=== PATIENT | male | born 1980 | race Caucasian/White ===

== ENCOUNTER 2017-06-24 20:14 | Inpatient (IN) ==
[2017-06-24] MEDS ORDERED: Pantoprazole 80 MG in Water for inj. (sterile) 10 ML IVP ONE (20:21)
[2017-06-24] MEDS ORDERED: 0.9 % Sodium Chloride 1,000 ML IVC ONE (20:21)
--- NOTE | 2017-06-24 20:22 | Emergency Department Note ---
Disposition Clinical Impression: Upper gastrointestinal hemorrhage, Abnormal liver function tests, History of hepatitis Disposition: Admitted As Inpatient Referrals: NONE,PCP [Primary Care Provider] - Forms: ED Satisfaction Letter General Adult HPI - General Chief complaint: ED GI Bleed Stated complaint: GI bleed Time Seen by Provider: 06/24/17 20:21 Source: patient Limitations: no limitations - History of Present Illness HPI Narrative: 37-year-old male comes in with concerns for vomiting bright red material. He describes dark and black and stool. The patient has no history of ulcer disease. There is no history of chest pain shortness of breath or abdominal pain. No recent trauma. The patient started vomiting what he material about 3: 30 AM. The patient is currently incarcerated. He is here with the [facility] deputy. The patient denies any history of anticoagulant use. There is no history of back pain. No skin rashes. No confusion or syncope. The patient describes a history of Crohn's disease for which he was never treated. The patient has no history of previous gastrointestinal bleeding. Pain Scale: 0 - Related Data Home Medications Medication Instructions Recorded Confirmed No Known Home Drugs 06/24/17 06/24/17 Allergies Allergy/AdvReac Type Severity Reaction Status Date / Time No Known Allergies Allergy Verified 02/19/17 21:56 All systems ED: reviewed and negative except as stated. Past Medical History - Past Medical History Medical history: Reports: no medical history Surgical history: Reports: non-contributory Psychiatric history: Reports: no psych history - Social History Smoking Status: Never smoker Alcohol use: Reports: none Drug use: Reports: methamphetamine Physical Exam - General Limitations: no limitations General appearance: alert, in no apparent distress - Head Head exam: atraumatic, normocephalic, normal inspection - Eye Eye exam: Present: normal appearance, PERRL, EOMI - ENT ENT exam: normal exam, normal oropharynx, mucous membranes moist, TM's normal bilaterally, normal external ear exam - Neck Neck exam: Present: normal inspection, full ROM, trachea midline - Chest Chest inspection: Present: symmetric chest wall rise. Absent: tenderness - Respiratory Respiratory exam: Present: normal lung sounds bilaterally. Absent: respiratory distress, wheezes, accessory muscle use, prolonged expiratory phase - Cardiovascular Cardiovascular exam: Present: normal rhythm, tachycardia - Abdominal Exam Abdominal exam: Present: soft, Non-Tender, normal bowel sounds. Absent: tenderness, distention, guarding, rebound, rigidity, trauma - Rectal Exam Tetryl Blender Operator present during exam: Yes Rectal exam: Present: normal inspection, normal rectal tone, black stool. Absent: hemorrhoids - Extremities Exam Extremities exam: Present: normal inspection, full ROM, normal capillary refill. Absent: tenderness, pedal edema, joint swelling, calf tenderness - Expanded Lower Extremity Exam Lower leg exam: Absent: Homans' sign Neurovascular/Tendon exam: Present: normal capillary refill. Absent: motor deficit, sensory deficit, tendon deficit, extremity cold to touch, pallor - Back Exam Back exam: Present: normal inspection, full ROM. Absent: tenderness, CVA tenderness (L), paraspinal tenderness, vertebral tenderness - Neurological Exam Neurological exam: Present: alert, oriented X3, CN II-XII intact. Absent: motor sensory deficit - Psychiatric Psychiatric exam: Present: normal affect - Skin Skin exam: Present: warm, dry, intact, normal color. Absent: rash, cyanosis, diaphoresis, erythema, pallor, mottled Course Vital Signs Temperature 97.5 F L 06/24/17 20:16 Pulse Rate 127 06/24/17 20:16 Respiratory Rate 16 06/24/17 20:16 Blood Pressure 114/70 06/24/17 20:16 O2 Sat by Pulse Oximetry 97 06/24/17 20:16 Temperature 97.5 F L 06/24/17 20:16 Pulse Rate 92 06/24/17 21:52 Respiratory Rate 16 06/24/17 21:52 Blood Pressure 129/80 06/24/17 21:52 O2 Sat by Pulse Oximetry 97 06/24/17 21:52 Oxygen Delivery Oxygen Delivery Room Air Medical Decision Making - [facility] Narrative Medical decision making narrative: The patient's rectal exam reveals black material on the glove which is heme positive. He is anemic with a hemoglobin of 10.7. Initially tachycardic, IV fluids were given, type and screen was ordered. Elevated BUN suggestive of upper GI bleed. Protonix bolus Protonix drip were given. The patient appears to have upper gastrointestinal bleeding, his liver function tests are abnormal suggestive of hepatitis. Per report the patient has a history of hepatitis. Based on the patient's acute upper gastrointestinal bleeding, anemia, and tachycardia I thought it would be appropriate to admit the patient to the hospital. The patient's heart rate is come down into the 108 range. A third liter of fluid was given. A second hemoglobin was ordered. The patient is incarcerated [facility] is here with him. He is being monitored by security. The patient is currently stable pending admission. I have reviewed the case with the hospitalist on-call who has accepted the patient to their care. - Lab Data Lab results reviewed: Yes I reviewed the patient's lab results. Result diagrams: 06/24/17 20:47 06/24/17 20:47 Lab Results 06/24/17 06/24/17 06/24/17 Range/Units 20:47 20:47 20:47 WBC 11.6 H (4.3-11.1) K/mcL RBC 4.05 L (4.19-5.50) M/mcL Hgb 10.7 L (12.9-16.9) g/dL Hct 34.3 L (37.5-50.1) % MCV 84.7 (83.0-100.0) fL MCH 26.4 L (28.0-33.3) pg MCHC 31.2 L (31.6-35.5) g/dL RDW 13.7 (11.5-14.5) % Plt Count 247 (140-400) K/mcL MPV 11.8 (9.4-12.4) fL Immature Gran % 0.5 (0-4) % Seg Neutrophils % 75.5 % Lymphocytes % 17.7 % Monocytes % 5.1 % Eosinophils % 0.9 % Basophils % 0.3 % Neutrophils # 8.8 (1.6-8.9) K/mcL Lymphocytes # 2.1 (0.6-4.6) K/mcL Monocytes # 0.6 (0.0-1.3) K/mcL Eosinophils # 0.1 (0.0-0.6) K/mcL Basophils # 0.0 (0.0-0.2) K/mcL PT 12.9 H (9.4-12.1) Seconds INR 1.2 APTT 28.9 (26.0-36.0) Seconds Sodium 138 (136-145) mEq/L Potassium 4.1 (3.5-4.5) mEq/L Chloride 104 (98-109) mEq/L Carbon Dioxide 19 (19-29) mEq/L BUN 32 H (8-26) mg/dL Creatinine 0.85 (0.72-1.25) mg/dL Est GFR ( Amer) > 60 (> 60) Est GFR (Non-Af Amer) > 60 (> 60) BUN/Creatinine Ratio 38 H (6-26) Glucose 136 H (70-99) mg/dL Calculated Osmolality 295 (280-300) Calcium 8.5 L (8.6-10.8) mg/dL Total Bilirubin 0.9 (0.2-1.2) mg/dL Direct Bilirubin 0.4 (0.0-0.5) mg/dL Indirect Bilirubin 0.5 (0.0-1.2) mg/dL AST 339 H (5-34) Units/L ALT 660 H (0-55) Units/L Alkaline Phosphatase 96 (38-126) Units/L Serum Total Protein 7.0 (6.0-8.3) g/dL Albumin 3.3 L (3.5-5.0) g/dL Globulin 3.7 H (2.4-3.5) g/dL Albumin/Globulin Ratio 0.9 L (1.1-2.2) Stool Occult Blood (Negative) Blood Type Antibody Screen 06/24/17 06/24/17 Range/Units 20:47 21:26 WBC (4.3-11.1) K/mcL RBC (4.19-5.50) M/mcL Hgb (12.9-16.9) g/dL Hct (37.5-50.1) % MCV (83.0-100.0) fL MCH (28.0-33.3) pg MCHC (31.6-35.5) g/dL RDW (11.5-14.5) % Plt Count (140-400) K/mcL MPV (9.4-12.4) fL Immature Gran % (0-4) % Seg Neutrophils % % Lymphocytes % % Monocytes % % Eosinophils % % Basophils % % Neutrophils # (1.6-8.9) K/mcL Lymphocytes # (0.6-4.6) K/mcL Monocytes # (0.0-1.3) K/mcL Eosinophils # (0.0-0.6) K/mcL Basophils # (0.0-0.2) K/mcL PT (9.4-12.1) Seconds INR APTT (26.0-36.0) Seconds Sodium (136-145) mEq/L Potassium (3.5-4.5) mEq/L Chloride (98-109) mEq/L Carbon Dioxide (19-29) mEq/L BUN (8-26) mg/dL Creatinine (0.72-1.25) mg/dL Est GFR ( Amer) (> 60) Est GFR (Non-Af Amer) (> 60) BUN/Creatinine Ratio (6-26) Glucose (70-99) mg/dL Calculated Osmolality (280-300) Calcium (8.6-10.8) mg/dL Total Bilirubin (0.2-1.2) mg/dL Direct Bilirubin (0.0-0.5) mg/dL Indirect Bilirubin (0.0-1.2) mg/dL AST (5-34) Units/L ALT (0-55) Units/L Alkaline Phosphatase (38-126) Units/L Serum Total Protein (6.0-8.3) g/dL Albumin (3.5-5.0) g/dL Globulin (2.4-3.5) g/dL Albumin/Globulin Ratio (1.1-2.2) Stool Occult Blood Positive A (Negative) Blood Type O NEGATIVE Antibody Screen NEGATIVE
[2017-06-24] MEDS ORDERED: Pantoprazole 40 MG in 0.9 % Sodium Chloride Mini Bag 100 ML IVC SCH (20:30)
[2017-06-24] MEDS ORDERED: Pantoprazole 40 MG in 0.9 % Sodium Chloride Mini Bag 100 ML IVC ONE (20:30)
[2017-06-24 21:03] LABS: Basophils % 0.3 %; Eosinophils # 0.1 K/mcL (0.0-0.6); Eosinophils % 0.9 %; Hematocrit 34.3 % (37.5-50.1); Hemoglobin 10.7 g/dL (12.9-16.9); Immature Granulocytes % 0.5 % (0-4); Lymphocytes # 2.1 K/mcL (0.6-4.6); Lymphocytes % 17.7 %; Mean Corpuscular HGB Conc 31.2 g/dL (31.6-35.5); Mean Corpuscular Hemoglobin 26.4 pg (28.0-33.3); Mean Corpuscular Volume 84.7 fL (83.0-100.0); Mean Platelet Volume 11.8 fL (9.4-12.4); Monocytes # 0.6 K/mcL (0.0-1.3); Monocytes % 5.1 %; Neutrophils # 8.8 K/mcL (1.6-8.9); Platelet Count 247 K/mcL (140-400); Red Blood Count 4.05 M/mcL (4.19-5.50); Red Cell Distribution Width 13.7 % (11.5-14.5); Segmented Neutrophils % 75.5 %
[2017-06-24 21:08] LABS: INR 1.2; Prothrombin Time 12.9 Seconds (9.4-12.1)
[2017-06-24 21:10] LABS: Activated Partial Thrombo Time 28.9 Seconds (26.0-36.0)
[2017-06-24 21:21] LABS: Alanine Aminotransferase 660 Units/L (0-55); Albumin 3.3 g/dL (3.5-5.0); Albumin/Globulin Ratio 0.9 (1.1-2.2); Alkaline Phosphatase 96 Units/L (38-126); Aspartate Amino Transferase 339 Units/L (5-34); BUN/Creatinine Ratio 38 (6-26); Bilirubin,Direct 0.4 mg/dL (0.0-0.5); Bilirubin,Indirect 0.5 mg/dL (0.0-1.2); Bilirubin,Total 0.9 mg/dL (0.2-1.2); Blood Urea Nitrogen 32 mg/dL (8-26); Calcium 8.5 mg/dL (8.6-10.8); Carbon Dioxide 19 mEq/L (19-29); Chloride 104 mEq/L (98-109); Globulin 3.7 g/dL (2.4-3.5); Glucose 136 mg/dL (70-99); Osmolality,Calculated 295 (280-300); Potassium 4.1 mEq/L (3.5-4.5); Sodium 138 mEq/L (136-145); eGFR For African Americans > 60 (> 60); eGFR For Non-African Americans > 60 (> 60)
[2017-06-24] MEDS ORDERED: 0.9 % Sodium Chloride 1,000 ML ONE ×2 (21:37→22:41)
[2017-06-24 22:47] LABS: Amphetamine Screen,Urine Negative ng/mL (Cutoff=1000); Barbiturate Screen,Urine Negative ng/mL (Cutoff=200); Benzodiazepines Screen,Urine Negative ng/mL (Cutoff=200); Cannabinoid Screen,Urine Negative ng/mL (Cutoff = 50); Cocaine Screen,Urine Negative ng/mL (Cutoff= 300); Opiate Screen,Urine Negative ng/mL (Cutoff=300); Phencyclidine Screen,Urine Negative ng/mL (Cutoff=25)
[2017-06-24 22:56] LABS: Hematocrit 33.6 % (37.5-50.1); Hemoglobin 10.6 g/dL (12.9-16.9); Mean Corpuscular HGB Conc 31.5 g/dL (31.6-35.5); Mean Corpuscular Hemoglobin 26.6 pg (28.0-33.3); Mean Corpuscular Volume 84.4 fL (83.0-100.0); Mean Platelet Volume 11.4 fL (9.4-12.4); Platelet Count 223 K/mcL (140-400); Red Blood Count 3.98 M/mcL (4.19-5.50); Red Cell Distribution Width 13.7 % (11.5-14.5)
[2017-06-24] MEDS ORDERED: *HR* LORazepam 2 MG/ML VIAL IVP ONE (23:40)
[2017-06-25] MEDS: *HR* Morphine 2 MG/ML SYRINGE IVP PRN ×7 (01:25→21:57)
[2017-06-25] MEDS ORDERED: Naloxone 0.4 MG/ML INJ IVP PRN (05:15)
[2017-06-25] MEDS: 0.9 % Sodium Chloride 1,000 ML IVC SCH ×2 (06:08→15:37)
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
[2017-06-25] MEDS ORDERED: Pantoprazole 80 MG in 0.9 % Sodium Chloride 250 ML IVC SCH (06:45)
[2017-06-25 07:09] LABS: Hematocrit 26.5 % (37.5-50.1)
[2017-06-25 07:10] LABS: Basophils % 0.3 %; Eosinophils # 0.1 K/mcL (0.0-0.6); Eosinophils % 1.1 %; Hematocrit 26.6 % (37.5-50.1); Hematocrit 26.8 % (37.5-50.1); Hemoglobin 8.5 g/dL (12.9-16.9); Hemoglobin 8.6 g/dL (12.9-16.9); Immature Granulocytes % 0.4 % (0-4); Lymphocytes # 2.3 K/mcL (0.6-4.6); Lymphocytes % 29.5 %; Mean Corpuscular HGB Conc 31.7 g/dL (31.6-35.5); Mean Corpuscular HGB Conc 32.3 g/dL (31.6-35.5); Mean Corpuscular Hemoglobin 26.3 pg (28.0-33.3); Mean Corpuscular Hemoglobin 26.7 pg (28.0-33.3); Mean Corpuscular Volume 82.6 fL (83.0-100.0); Mean Platelet Volume 12.1 fL (9.4-12.4); Mean Platelet Volume 12.2 fL (9.4-12.4); Monocytes # 0.6 K/mcL (0.0-1.3); Monocytes % 7.4 %; Neutrophils # 4.8 K/mcL (1.6-8.9); Nucleated Red Blood Cells 0.3 /100 WBC (0); Platelet Count 194 K/mcL (140-400); Platelet Count 195 K/mcL (140-400); Red Blood Count 3.22 M/mcL (4.19-5.50); Red Blood Count 3.23 M/mcL (4.19-5.50); Red Cell Distribution Width 13.9 % (11.5-14.5); Segmented Neutrophils % 61.3 %
[2017-06-25 07:13] LABS: Hemoglobin 8.6 g/dL (12.9-16.9)
[2017-06-25 07:38] LABS: Alanine Aminotransferase 482 Units/L (0-55); Albumin 2.7 g/dL (3.5-5.0); Albumin/Globulin Ratio 0.9 (1.1-2.2); Alkaline Phosphatase 72 Units/L (38-126); Amylase 40 Units/L (25-125); Aspartate Amino Transferase 241 Units/L (5-34); BUN/Creatinine Ratio 33 (6-26); Bilirubin,Direct 0.2 mg/dL (0.0-0.5); Bilirubin,Indirect 0.5 mg/dL (0.0-1.2); Bilirubin,Total 0.7 mg/dL (0.2-1.2); Blood Urea Nitrogen 27 mg/dL (8-26); Calcium 7.8 mg/dL (8.6-10.8); Carbon Dioxide 24 mEq/L (19-29); Chloride 107 mEq/L (98-109); Chol/HDL Ratio 5.2 (0-4.9); Cholesterol 109 mg/dL (< 200); Glucose 93 mg/dL (70-99); HDL Cholesterol 21 mg/dL (40-59); LDL Cholesterol,Calculated 65 mg/dL (0-99); Magnesium 1.4 mg/dL (1.6-2.6); Osmolality,Calculated 295 (280-300); Sodium 140 mEq/L (136-145); Total Protein 5.7 g/dL (6.0-8.3); Triglycerides 115 mg/dL (< 150); eGFR For African Americans > 60 (> 60); eGFR For Non-African Americans > 60 (> 60)
[2017-06-25 07:39] LABS: Lipase < 10 Units/L (8-78)
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
[2017-06-25 10:03] LABS: % Iron Saturation 51 % (20-55); Iron 182 mcg/dL (65-175); Transferrin 255 mg/dL (174-364)
[2017-06-25 10:23] LABS: Ferritin 72 ng/ml (22-275)
[2017-06-25 11:51] LABS: Hematocrit 25.6 % (37.5-50.1); Hemoglobin 8.2 g/dL (12.9-16.9)
--- NOTE | 2017-06-25 13:15 | Anesthesia Evaluation PreOp ---
Date of Encounter: 06/25/17 Time of Encounter: 13:45 - Past History Planned Operation: EGD Cardiac History: Denies any Significant Hx Pulmonary History: Denies Any Significant HX ROAD DRIVER History: Denies Any Significant HX Other Medical History: Hepatic (History of hepatitis and IV drug abuse.), Other ([facility] with [facility] and upper GI bleed. Has not required transfusion yet.) Anesthesia History: No Prior Anesthetic Complications, Past Anesthesia Alcohol Use: none Drug use: marijuana, methamphetamine Medications and Allergies No Known Home Drugs 06/24/17 [History] 3 Allergy/AdvReac Type Severity Reaction Status Date / Time No Known Allergies Allergy Verified 02/19/17 21:56 - Meds/Allergy Pre-op Review Medications Reviewed: Yes Allergies Reviewed: Yes Beta Blockers on Current Med List: No Anesthesia Results - Labs 06/25/17 11:11 06/25/17 05:37 Anesthesia Exam Selected Entries 06/25/17 11:29 Temperature 98.2 F Pulse Rate 94 Respiratory Rate 15 Blood Pressure 119/78 O2 Sat by Pulse Oximetry 97 NPO (# of Hours): 72 kg - HEENT Pupil (Motor): Pupils equal Mallampati: I Teeth: Normal (broken tooth) Oral Opening: Greater than 3 - Cardiac Rhythm: Regular Murmur: None - Pulmonary Breath Sounds: bilateral Clear Respiratory Effort: Symmetrical Anesthesia Assess/Plan ASA Score: 2 Modified [place] Scale for Level of Consciousness: Cooperative, oriented, and tranquil Anesthetic Plan: MAC Monitoring Plan: Standard Monitors Recovery Plan: Other (Discussed MAC anesthesia, agreed to proceed.)
[2017-06-25] MEDS: 0.9 % Sodium Chloride 500 ML IVC SCH (13:43)
[2017-06-25] MEDS ORDERED: *HR* Propofol 200 MG/20 ML VIAL IVP ONE (13:54)
--- NOTE | 2017-06-25 14:54 | Internal Med Progress Note ---
<Jb Olivier - Last Filed: 06/25/17 15:01> Date of Encounter: 06/25/17 Time of Encounter: 09:45 - Assessment and plan (1) Upper gastrointestinal hemorrhage Current Visit: Yes Status: Acute Assessment and plan: Patient reported having several episodes of kathi hematemesis and melena before admission. He described having dark and black stool. No history of peptic ulcer disease. No history of anticoagulant use. He describes a history of Crohn's disease for which she was never treated; no previous GI bleeds. Rectal exam revealed black material; heme positive. Patient's hemoglobin dropped by approximately 2 points. Hb this morning was 8.6. Was initially tachycardic; IV fluids were given. Patient's blood type is O-. Plan: -Plan for EGD today. -GI is on board. -Pantoprazole drip 80 mg IV -Repeat exam labs. (2) Cholecystitis Current Visit: Yes Status: Acute Assessment and plan: Gallbladder ultrasound on 06/25/17 revealed the following: Suspected biliary sludge without findings of cholelithiasis. There is mild gallbladder wall thickening without additional secondary findings of cholecystitis. Normal sonographic appearance of the liver. Plan: -GI on board, HIDA scan may be needed (3) Transaminitis Current Visit: Yes Status: Acute Assessment and plan: Patient has a known history of hepatitis C. AST: 241 ALT: 482. Toxicology report was negative. Repeated am labs, along with viral hepatitis panel, ferritin, iron profile, platelet count, PT INR (4) DVT prophylaxis Current Visit: Yes Status: Acute Assessment and plan: EPCD - Subjective Interval history: Patient was seen and examined at bedside this morning. Patient reports having some abdominal pain. He also reports having some anxiety, which was initially relieved by Ativan. He is not requesting more. Patient denies having any episodes of nausea or vomiting this morning. Denies fever, chills, diarrhea, constipation. Denies having any other complaints at this time. banking officer at bedside. Patient is going for EGD today. - Constitutional Vitals: Temp Pulse Resp BP Pulse Ox 99 F 92 18 118/77 97 06/25/17 13:40 06/25/17 13:40 06/25/17 13:40 06/25/17 13:40 06/25/17 13:40 General appearance: Present: cooperative, A&O X 3, pleasant, no acute distress, answers questions appropriately - Head Head exam: Present: atraumatic, normocephalic - Neck Neck exam general surgery: Present: supple, trachea midline. Absent: lymphadenopathy - Respiratory Respiratory exam: Present: CTAB. Absent: accessory muscle use, rales, rhonchi, wheezes - Cardiovascular Cardiovascular exam: Present: RRR, +S1, +S2. Absent: diastolic murmur, gallop, rubs, systolic murmur - GI/Abdominal GI/Abdominal exam: Present: normal bowel sounds, soft, tenderness, no peritoneal signs. Absent: distended Additional comments: Diffuse abdominal pain; not reproducible by palpation. - Extremities Exam Extremities exam: Present: warm, radial pulses palpable and symmetrical. Absent : calf tenderness, cyanotic, pedal edema - Skin Skin exam: Present: dry, intact Internal Medicine: Result - Labs CBC & Chem 7: 06/25/17 11:11 06/25/17 05:37 Labs: Short CBC 06/25/17 06/25/17 06/25/17 Range/Units 05:37 05:37 05:37 WBC 8.2 7.9 (4.3-11.1) K/mcL Hgb 8.6 L D 8.6 L 8.5 L (12.9-16.9) g/dL Hct 26.6 L 26.5 L 26.8 L (37.5-50.1) % Plt Count 195 194 (140-400) K/mcL Neutrophils # 4.8 (1.6-8.9) K/mcL 06/25/17 Range/Units 11:11 WBC (4.3-11.1) K/mcL Hgb 8.2 L (12.9-16.9) g/dL Hct 25.6 L (37.5-50.1) % Plt Count (140-400) K/mcL Neutrophils # (1.6-8.9) K/mcL BMP 06/25/17 05:37 Sodium 140 Potassium 4.0 Chloride 107 Carbon Dioxide 24 BUN 27 H Creatinine 0.81 Glucose 93 Calcium 7.8 L Liver Function 06/25/17 Range/Units 05:37 Total Bilirubin 0.7 (0.2-1.2) mg/dL Direct Bilirubin 0.2 (0.0-0.5) mg/dL AST 241 H (5-34) Units/L ALT 482 H (0-55) Units/L Alkaline Phosphatase 72 (38-126) Units/L Albumin 2.7 L (3.5-5.0) g/dL - ABG Interpretation ABG results: PT/INR, D-dimer PT 12.9 Seconds (9.4-12.1) H 06/24/17 20:47 - Impressions Impressions Gallbladder Ultrasound 06/25/17 10:30 IMPRESSION: 1. Suspected biliary sludge without findings of cholelithiasis. There is mild gallbladder wall thickening without additional secondary findings of cholecystitis. Consider further evaluation with a nuclear medicine hepatobiliary scan if there are clinical findings of cholecystitis. 2. Normal sonographic appearance of the liver. D/ / Reinier Robles MD / Reinier Robles MD Interpreting Provider: Reinier Robles MD Consult Discharge Plan - Plan Referrals: NONE,PCP [Primary Care Provider] - <Nate Patel - Last Filed: 06/25/17 19:37> Date of Encounter: 06/25/17 - Constitutional Vitals: Temp Pulse Resp BP Pulse Ox 97.9 F 89 18 112/68 98 06/25/17 19:10 06/25/17 19:10 06/25/17 19:10 06/25/17 19:10 06/25/17 19:10 Internal Medicine: Result - Labs CBC & Chem 7: 06/25/17 18:01 06/25/17 05:37 Labs: Short CBC 06/25/17 06/25/17 06/25/17 Range/Units 05:37 05:37 05:37 WBC 8.2 7.9 (4.3-11.1) K/mcL Hgb 8.6 L D 8.6 L 8.5 L (12.9-16.9) g/dL Hct 26.6 L 26.5 L 26.8 L (37.5-50.1) % Plt Count 195 194 (140-400) K/mcL Neutrophils # 4.8 (1.6-8.9) K/mcL 06/25/17 06/25/17 Range/Units 11:11 18:01 WBC (4.3-11.1) K/mcL Hgb 8.2 L 7.6 L (12.9-16.9) g/dL Hct 25.6 L 23.4 L (37.5-50.1) % Plt Count (140-400) K/mcL Neutrophils # (1.6-8.9) K/mcL BMP 06/25/17 05:37 Sodium 140 Potassium 4.0 Chloride 107 Carbon Dioxide 24 BUN 27 H Creatinine 0.81 Glucose 93 Calcium 7.8 L Liver Function 06/25/17 Range/Units 05:37 Total Bilirubin 0.7 (0.2-1.2) mg/dL Direct Bilirubin 0.2 (0.0-0.5) mg/dL AST 241 H (5-34) Units/L ALT 482 H (0-55) Units/L Alkaline Phosphatase 72 (38-126) Units/L Albumin 2.7 L (3.5-5.0) g/dL - ABG Interpretation ABG results: PT/INR, D-dimer PT 12.9 Seconds (9.4-12.1) H 06/24/17 20:47 - Impressions Impressions Gallbladder Ultrasound 06/25/17 10:30 IMPRESSION: 1. Suspected biliary sludge without findings of cholelithiasis. There is mild gallbladder wall thickening without additional secondary findings of cholecystitis. Consider further evaluation with a nuclear medicine hepatobiliary scan if there are clinical findings of cholecystitis. 2. Normal sonographic appearance of the liver. D/ / Reinier Robles MD / Reinier Robles MD Interpreting Provider: Reinier Robles MD - Attending Attestation I conducted a face to face diagnostic evaluation of this patient and my medical decision-making was reviewed with the Resident Physician, Dr. Jb Olivier. I agree with the documented findings, disposition and treatment plan as described except to the extent set forth below: On exam he is in no acute distress, abdomen is soft, nontender. Continue with IV Protonix. Appreciate GI recommendations. All medical problems or new to me today.
[2017-06-25] MEDS ORDERED: *HR* EPINEPHrine 1 MG/10 ML SYRINGE INTRATRACH PRN (14:55)
[2017-06-25] MEDS ORDERED: *HR* LORazepam 2 MG/ML VIAL IVP PRN (15:56)
[2017-06-25 18:11] LABS: Hematocrit 23.4 % (37.5-50.1); Hemoglobin 7.6 g/dL (12.9-16.9)
[2017-06-25] MEDS: Ondansetron 4 MG/2 ML VIAL IVP SCH ×2 (18:22→23:34)
[2017-06-25] MEDS: Pantoprazole 80 MG in 0.9 % Sodium Chloride 250 ML IVC SCH (23:28)
[2017-06-26 01:34] LABS: Hematocrit 22.6 % (37.5-50.1); Hemoglobin 7.2 g/dL (12.9-16.9)
[2017-06-26] MEDS: *HR* Morphine 2 MG/ML SYRINGE IVP PRN ×5 (02:07→21:39)
[2017-06-26] MEDS: Ondansetron 4 MG/2 ML VIAL IVP SCH ×4 (06:02→23:56)
[2017-06-26 06:23] LABS: Hematocrit 22.9 % (37.5-50.1); Hemoglobin 7.3 g/dL (12.9-16.9)
[2017-06-26] MEDS: 0.9 % Sodium Chloride 500 ML IVC SCH (07:35)
[2017-06-26] MEDS: Pantoprazole 80 MG in 0.9 % Sodium Chloride 250 ML IVC SCH (08:36)
[2017-06-26 08:49] LABS: Ceruloplasmin 15 mg/dL (17-54)
[2017-06-26 10:20] LABS: Hematocrit 22.7 % (37.5-50.1); Hemoglobin 7.1 g/dL (12.9-16.9); Mean Corpuscular HGB Conc 31.3 g/dL (31.6-35.5); Mean Corpuscular Volume 83.2 fL (83.0-100.0); Platelet Count 129 K/mcL (140-400); Red Blood Count 2.73 M/mcL (4.19-5.50); Red Cell Distribution Width 13.8 % (11.5-14.5)
[2017-06-26 10:32] LABS: BUN/Creatinine Ratio 16 (6-26); Blood Urea Nitrogen 14 mg/dL (8-26); Calcium 8.4 mg/dL (8.6-10.8); Carbon Dioxide 29 mEq/L (19-29); Chloride 106 mEq/L (98-109); Glucose 92 mg/dL (70-99); Osmolality,Calculated 288 (280-300); Potassium 3.5 mEq/L (3.5-4.5); Sodium 139 mEq/L (136-145); eGFR For African Americans > 60 (> 60); eGFR For Non-African Americans > 60 (> 60)
[2017-06-26 11:29] LABS: Hepatitis B Core IgM Reactive (Nonreactive); Hepatitis B Surface Antigen Reactive (Nonreactive); Hepatitis C Virus Antibody Reactive (Nonreactive)
[2017-06-26 12:25] LABS: Hepatitis A Antibody IgM Nonreactive (Nonreactive)
[2017-06-26 12:39] LABS: Hematocrit 23.6 % (37.5-50.1); Hemoglobin 7.6 g/dL (12.9-16.9)
--- NOTE | 2017-06-26 16:16 | Internal Med Progress Note ---
<Jb Olivier - Last Filed: 06/26/17 16:28> Date of Encounter: 06/26/17 Time of Encounter: 10:45 - Assessment and plan (1) Upper gastrointestinal hemorrhage Current Visit: Yes Status: Acute Assessment and plan: Patient reported having several episodes of kathi hematemesis and melena before admission. He described having dark and black stool. No history of peptic ulcer disease. No history of anticoagulant use. He describes a history of Crohn's disease for which she was never treated; no previous GI bleeds. Rectal exam revealed black material; heme positive. Patient's hemoglobin dropped by approximately 2 points. Hb this morning was 8.6. Was initially tachycardic; IV fluids were given. Patient's blood type is O-. Isamar Arambula tear found on EGD. Plan: -Pantoprazole drip 80 mg IV -Trend Hb Q6 -Repeat am labs. (3) Cholecystitis Current Visit: Yes Status: Acute Assessment and plan: Gallbladder ultrasound on 06/25/17 revealed the following: Suspected biliary sludge without findings of cholelithiasis. There is mild gallbladder wall thickening without additional secondary findings of cholecystitis. Normal sonographic appearance of the liver. Plan: -GI on board (4) Transaminitis Current Visit: Yes Status: Acute Assessment and plan: Patient has a known history of hepatitis C. AST: 241 ALT: 482. (5) DVT prophylaxis Current Visit: Yes Status: Acute Assessment and plan: EPCD (6) Anxiety Current Visit: Yes Status: Acute Assessment and plan: Ativan 0.5 mg Q6 PRN - Subjective Interval history: Patient was seen and examined at bedside this morning. Patient reports having some abdominal pain. He also reports some anxiety. He states that the Ativan has helped somewhat, but he still feels anxious. He also complains of some abdominal pain present in the area above his umbilicus. Denies nausea or vomiting. No other complaints at this time. - Constitutional Vitals: Temp Pulse Resp BP Pulse Ox 98.9 F 93 16 124/64 93 06/26/17 11:16 06/26/17 11:16 06/26/17 11:16 06/26/17 11:16 06/26/17 11:16 General appearance: Present: cooperative, A&O X 3, pleasant, no acute distress, answers questions appropriately - Head Head exam: Present: atraumatic, normocephalic - Eye Eye exam: Present: PERRL, conjuntiva pink, sclera anicteric Pupils: Present: PERRL - Neck Neck exam general surgery: Present: supple, trachea midline. Absent: lymphadenopathy - Respiratory Respiratory exam: Present: CTAB. Absent: accessory muscle use, rales, rhonchi, wheezes - Cardiovascular Cardiovascular exam: Present: RRR, +S1, +S2. Absent: diastolic murmur, gallop, rubs, systolic murmur - GI/Abdominal GI/Abdominal exam: Present: normal bowel sounds, tenderness. Absent: distended - Extremities Exam Extremities exam: Present: warm, radial pulses palpable and symmetrical. Absent : calf tenderness, cyanotic, pedal edema - Skin Skin exam: Present: dry, intact Internal Medicine: Result - Labs CBC & Chem 7: 06/26/17 12:08 06/26/17 09:56 Labs: Short CBC 06/25/17 06/26/17 06/26/17 Range/Units 18:01 00:31 06:15 WBC (4.3-11.1) K/mcL Hgb 7.6 L 7.2 L 7.3 L (12.9-16.9) g/dL Hct 23.4 L 22.6 L 22.9 L (37.5-50.1) % Plt Count (140-400) K/mcL 06/26/17 06/26/17 Range/Units 09:56 12:08 WBC 3.1 L D (4.3-11.1) K/mcL Hgb 7.1 L 7.6 L (12.9-16.9) g/dL Hct 22.7 L 23.6 L (37.5-50.1) % Plt Count 129 L (140-400) K/mcL BMP 06/26/17 09:56 Sodium 139 Potassium 3.5 Chloride 106 Carbon Dioxide 29 BUN 14 D Creatinine 0.88 Glucose 92 Calcium 8.4 L - ABG Interpretation ABG results: PT/INR, D-dimer PT 12.9 Seconds (9.4-12.1) H 06/24/17 20:47 Consult Discharge Plan - Plan Referrals: NONE,PCP [Primary Care Provider] - <Nate Patel - Last Filed: 06/27/17 17:51> Date of Encounter: 06/26/17 - Constitutional Vitals: Temp Pulse Resp BP Pulse Ox 98.4 F 73 15 103/64 98 06/27/17 16:17 06/27/17 16:17 06/27/17 16:17 06/27/17 16:17 06/27/17 16:17 Internal Medicine: Result - Labs CBC & Chem 7: 06/27/17 16:08 06/27/17 05:04 Labs: Short CBC 06/26/17 06/27/17 06/27/17 Range/Units 18:21 05:04 16:08 WBC 3.0 L 3.0 L (4.3-11.1) K/mcL Hgb 6.8 L 7.9 L 7.7 L (12.9-16.9) g/dL Hct 21.0 L 24.2 L 22.9 L (37.5-50.1) % Plt Count 125 L 103 L (140-400) K/mcL BMP 06/27/17 05:04 Sodium 140 Potassium 3.6 Chloride 107 Carbon Dioxide 29 BUN 12 Creatinine 1.01 Glucose 102 H Calcium 8.4 L - ABG Interpretation ABG results: PT/INR, D-dimer PT 12.9 Seconds (9.4-12.1) H 06/24/17 20:47 - Attending Attestation I conducted a face to face diagnostic evaluation of this patient and my medical decision-making was reviewed with the Resident Physician, Dr. Jb Olivier. I agree with the documented findings, disposition and treatment plan as described except to the extent set forth below: Patient had EGD which showed a Isamar-Arambula tear. Continue with protonic drip. Nothing by mouth. Follow-up with GI.
[2017-06-26] MEDS: Pantoprazole 40 MG VIAL IVP SCH (17:16)
[2017-06-26 18:52] LABS: Hemoglobin 6.8 g/dL (12.9-16.9)
[2017-06-26] MEDS ORDERED: 0.9 % Sodium Chloride 250 ML ONE (21:26)
[2017-06-27] MEDS: *HR* Morphine 2 MG/ML SYRINGE IVP PRN ×5 (01:06→20:28)
[2017-06-27] MEDS: *HR* LORazepam 2 MG/ML VIAL IVP PRN ×4 (04:19→23:53)
[2017-06-27 05:34] LABS: Hematocrit 24.2 % (37.5-50.1); Hemoglobin 7.9 g/dL (12.9-16.9); Mean Corpuscular HGB Conc 32.6 g/dL (31.6-35.5); Mean Corpuscular Hemoglobin 26.8 pg (28.0-33.3); Mean Platelet Volume 11.2 fL (9.4-12.4); Platelet Count 125 K/mcL (140-400); Red Blood Count 2.95 M/mcL (4.19-5.50); Red Cell Distribution Width 14.3 % (11.5-14.5)
[2017-06-27 05:46] LABS: BUN/Creatinine Ratio 12 (6-26); Blood Urea Nitrogen 12 mg/dL (8-26); Calcium 8.4 mg/dL (8.6-10.8); Carbon Dioxide 29 mEq/L (19-29); Chloride 107 mEq/L (98-109); Glucose 102 mg/dL (70-99); Osmolality,Calculated 290 (280-300); Potassium 3.6 mEq/L (3.5-4.5); Sodium 140 mEq/L (136-145); eGFR For African Americans > 60 (> 60); eGFR For Non-African Americans > 60 (> 60)
[2017-06-27 06:28] LABS: Beta Globulin (PEP) 0.66 g/dL (0.48-1.10)
[2017-06-27] MEDS: Pantoprazole 40 MG VIAL IVP SCH ×2 (06:30→17:44)
[2017-06-27] MEDS: Ondansetron 4 MG/2 ML VIAL IVP SCH ×4 (06:30→23:38)
[2017-06-27 08:24] LABS: ANA IgG by ELISA NONE DETECTED (None Detected); Immunoglobulin A (CELIAC) 185 mg/dL (68-408); Immunoglobulin G Subclass 1 569 mg/dL (240-1118); Immunoglobulin G Subclass 2 404 mg/dL (124-549); Immunoglobulin G Subclass 3 47 mg/dL (21-134); Immunoglobulin G Subclass 4 32 mg/dL (1-123)
[2017-06-27 08:35] LABS: IFE Reflexed NOT DONE
[2017-06-27 08:36] LABS: Myeloperoxidase Ab 3 AU/mL (0-19); Serine Protease-3 Antibody 0 AU/mL (0-19); Tissue Transglutaminase IgA 1 U/mL (0-3)
--- NOTE | 2017-06-27 10:01 | Internal Med Progress Note ---
<Jb Olivier - Last Filed: 06/27/17 11:36> Date of Encounter: 06/27/17 Time of Encounter: 09:30 - Assessment and plan (1) Upper gastrointestinal hemorrhage Current Visit: Yes Status: Acute Assessment and plan: Patient reported having several episodes of kathi hematemesis and melena before admission. He described having dark and black stool. No history of peptic ulcer disease. No history of anticoagulant use. He describes a history of Crohn's disease for which she was never treated; no previous GI bleeds. Rectal exam revealed black material; heme positive. Patient's blood type is O-. Isamar Arambula tear found on EGD. Scope today was negative. Per GI recommendation: Patient should be observed today, as he is s/p transfusion 1U pRBCs. Plan: -Pantoprazole drip 80 mg IV (2) Anemia Current Visit: Yes Status: Acute Assessment and plan: Hemoglobin this morning was 7.9. -Yesterday, patient's hemoglobin dropped to 7.1; was transfused with one unit of pRBCs. -Per GI recommendation: patient should be observed. Qualifiers: Qualified Code(s): D64.9 - Anemia, unspecified (3) Cholecystitis Current Visit: Yes Status: Acute Assessment and plan: Gallbladder ultrasound on 06/25/17 revealed the following: Suspected biliary sludge without findings of cholelithiasis. There is mild gallbladder wall thickening without additional secondary findings of cholecystitis. Normal sonographic appearance of the liver. Plan: -GI on board (4) Transaminitis Current Visit: Yes Status: Acute Assessment and plan: Patient has a known history of hepatitis C. AST: 241 ALT: 482. (5) DVT prophylaxis Current Visit: Yes Status: Acute Assessment and plan: EPCD (6) Anxiety Current Visit: Yes Status: Acute Assessment and plan: Ativan 0.5 mg Q6 PRN - Subjective Interval history: Patient was seen and examined at bedside this morning. Patient reports he still has some abdominal pain, particularly in the area below his umbilicus. Patient says that his anxiety has still not improved. Patient was able to tolerate liquids yesterday without difficulty. Patient was placed NPO after midnight for possible further testing. - Constitutional Vitals: Temp Pulse Resp BP Pulse Ox 98.6 F 79 16 106/71 98 06/27/17 07:05 06/27/17 07:05 06/27/17 07:05 06/27/17 07:05 06/27/17 07:05 General appearance: Present: cooperative, A&O X 3, pleasant, no acute distress, answers questions appropriately - Head Head exam: Present: atraumatic, normocephalic - Eye Eye exam: Present: PERRL, conjuntiva pink, sclera anicteric Pupils: Present: PERRL - Neck Neck exam general surgery: Present: supple, trachea midline. Absent: lymphadenopathy - Respiratory Respiratory exam: Present: CTAB. Absent: accessory muscle use, rales, rhonchi, wheezes - Cardiovascular Cardiovascular exam: Present: RRR, +S1, +S2. Absent: diastolic murmur, gallop, rubs, systolic murmur - GI/Abdominal GI/Abdominal exam: Present: normal bowel sounds, tenderness, no peritoneal signs - Skin Skin exam: Present: dry, intact Internal Medicine: Result - Labs CBC & Chem 7: 06/27/17 05:04 06/27/17 05:04 Labs: Short CBC 06/26/17 06/26/17 06/26/17 Range/Units 09:56 12:08 18:21 WBC 3.1 L D (4.3-11.1) K/mcL Hgb 7.1 L 7.6 L 6.8 L (12.9-16.9) g/dL Hct 22.7 L 23.6 L 21.0 L (37.5-50.1) % Plt Count 129 L (140-400) K/mcL 06/27/17 Range/Units 05:04 WBC 3.0 L (4.3-11.1) K/mcL Hgb 7.9 L (12.9-16.9) g/dL Hct 24.2 L (37.5-50.1) % Plt Count 125 L (140-400) K/mcL BMP 06/26/17 06/27/17 09:56 05:04 Sodium 139 140 Potassium 3.5 3.6 Chloride 106 107 Carbon Dioxide 29 29 BUN 14 D 12 Creatinine 0.88 1.01 Glucose 92 102 H Calcium 8.4 L 8.4 L - ABG Interpretation ABG results: PT/INR, D-dimer PT 12.9 Seconds (9.4-12.1) H 06/24/17 20:47 Consult Discharge Plan - Plan Referrals: NONE,PCP [Primary Care Provider] - <Nate Patel - Last Filed: 06/27/17 18:57> Date of Encounter: 06/27/17 - Constitutional Vitals: Temp Pulse Resp BP Pulse Ox 98.4 F 63 16 108/62 99 06/27/17 18:12 06/27/17 18:12 06/27/17 18:12 06/27/17 18:12 06/27/17 18:12 Internal Medicine: Result - Labs CBC & Chem 7: 06/27/17 16:08 06/27/17 05:04 Labs: Short CBC 06/26/17 06/27/17 06/27/17 Range/Units 18:21 05:04 16:08 WBC 3.0 L 3.0 L (4.3-11.1) K/mcL Hgb 6.8 L 7.9 L 7.7 L (12.9-16.9) g/dL Hct 21.0 L 24.2 L 22.9 L (37.5-50.1) % Plt Count 125 L 103 L (140-400) K/mcL BMP 06/27/17 05:04 Sodium 140 Potassium 3.6 Chloride 107 Carbon Dioxide 29 BUN 12 Creatinine 1.01 Glucose 102 H Calcium 8.4 L - ABG Interpretation ABG results: PT/INR, D-dimer PT 12.9 Seconds (9.4-12.1) H 06/24/17 20:47 - Attending Attestation I conducted a face to face diagnostic evaluation of this patient and my medical decision-making was reviewed with the Resident Physician, Dr. Jb Olivier. I agree with the documented findings, disposition and treatment plan as described except to the extent set forth below: Hemoglobin dropped back down to 7.9. I will transfuse 1 more unit PRBC.
--- NOTE | 2017-06-27 10:25 | Anesthesia Evaluation PreOp ---
Date of Encounter: 06/27/17 Time of Encounter: 10:25 - Past History Planned Operation: repeat EGD Cardiac History: Denies any Significant Hx Pulmonary History: Denies Any Significant HX Other Medical History: Hepatic Anesthesia History: No Prior Anesthetic Complications, Past Anesthesia (Just had an EGD with anesthesia 2 days ago. Isamar-Arambula tear identified. Started bleeding again, transfused this morning. Here for another EGD) Alcohol Use: none Drug use: marijuana, methamphetamine Medications and Allergies No Known Home Drugs 06/24/17 [History] 3 Allergy/AdvReac Type Severity Reaction Status Date / Time No Known Allergies Allergy Verified 02/19/17 21:56 - Meds/Allergy Pre-op Review Medications Reviewed: Yes Allergies Reviewed: Yes Beta Blockers on Current Med List: No Anesthesia Results - Labs 06/27/17 05:04 06/27/17 05:04 Anesthesia Exam Selected Entries 06/27/17 07:05 Temperature 98.6 F Pulse Rate 79 Respiratory Rate 16 Blood Pressure 106/71 Weight: 72 kg NPO (# of Hours): over 8 hours - HEENT Pupil (Motor): Pupils equal Mallampati: I Teeth: Normal, Missing Oral Opening: Greater than 3 - Cardiac Rhythm: Regular Murmur: None - Pulmonary Breath Sounds: bilateral Clear Respiratory Effort: Symmetrical Anesthesia Assess/Plan ASA Score: 2 Modified [place] Scale for Level of Consciousness: Cooperative, oriented, and tranquil Anesthetic Plan: MAC Monitoring Plan: Standard Monitors Recovery Plan: Other
[2017-06-27] MEDS ORDERED: *HR* Propofol 200 MG/20 ML VIAL IVP ONE (10:40)
[2017-06-27] MEDS ORDERED: Lidocaine -MPF 2% 2 ML VIAL ONE ×2 (10:40)
--- NOTE | 2017-06-27 10:51 | Anesthesia Evaluation Post Op ---
Date of Encounter: 06/27/17 Time of Encounter: 10:50 - Vital Signs Vital Signs: 98/54, HR 98, SpO2 98%, RR15, - Lungs Lungs: Clear Ascult./Percussion - Airway Airway: Non-obstructed - Cardiovascular Regular Rate - Mental Status Mental Status: Alert & Oriented, Answers Appropriately - Pain Pain Scale: 0 Pain Scale used: Numeric (1 - 10) - Nausea Vomiting Nausea Vomiting: Not Present - Hydration Hydration: NPO, Has not voided - Discharge PostOp Status: Transfer Patient to floor
[2017-06-27 16:20] LABS: Hematocrit 22.9 % (37.5-50.1); Hemoglobin 7.7 g/dL (12.9-16.9); Mean Corpuscular HGB Conc 33.6 g/dL (31.6-35.5); Mean Corpuscular Hemoglobin 27.5 pg (28.0-33.3); Mean Corpuscular Volume 81.8 fL (83.0-100.0); Mean Platelet Volume 11.1 fL (9.4-12.4); Platelet Count 103 K/mcL (140-400); Red Cell Distribution Width 14.2 % (11.5-14.5)
[2017-06-27] MEDS ORDERED: 0.9 % Sodium Chloride 500 ML ONE (17:41)
[2017-06-28] MEDS: *HR* Morphine 2 MG/ML SYRINGE IVP PRN ×3 (01:59→09:47)
[2017-06-28 03:16] LABS: Basophils % 0.3 %; Eosinophils # 0.3 K/mcL (0.0-0.6); Eosinophils % 10.5 %; Hematocrit 26.5 % (37.5-50.1); Hemoglobin 8.6 g/dL (12.9-16.9); Immature Granulocytes % 0.3 % (0-4); Lymphocytes # 1.1 K/mcL (0.6-4.6); Lymphocytes % 34.4 %; Mean Corpuscular HGB Conc 32.5 g/dL (31.6-35.5); Mean Corpuscular Volume 83.1 fL (83.0-100.0); Mean Platelet Volume 11.2 fL (9.4-12.4); Monocytes # 0.3 K/mcL (0.0-1.3); Monocytes % 11.1 %; Neutrophils # 1.3 K/mcL (1.6-8.9); Platelet Count 123 K/mcL (140-400); Red Blood Count 3.19 M/mcL (4.19-5.50); Red Cell Distribution Width 14.5 % (11.5-14.5); Segmented Neutrophils % 43.4 %
[2017-06-28 03:42] LABS: BUN/Creatinine Ratio 11 (6-26); Blood Urea Nitrogen 11 mg/dL (8-26); Calcium 7.9 mg/dL (8.6-10.8); Carbon Dioxide 25 mEq/L (19-29); Chloride 105 mEq/L (98-109); Glucose 112 mg/dL (70-99); Osmolality,Calculated 284 (280-300); Potassium 3.6 mEq/L (3.5-4.5); Sodium 137 mEq/L (136-145); eGFR For African Americans > 60 (> 60); eGFR For Non-African Americans > 60 (> 60)
[2017-06-28] MEDS: Ondansetron 4 MG/2 ML VIAL IVP SCH (06:19)
[2017-06-28] MEDS: Pantoprazole 40 MG VIAL IVP SCH (06:19)
[2017-06-28] MEDS: *HR* LORazepam 2 MG/ML VIAL IVP PRN (06:33)
[2017-06-28 07:24] VITALS: BP 101/63
--- NOTE | 2017-06-28 10:09 | Discharge Summary ---
<Jb Olivier - Last Filed: 06/28/17 10:23> Date of Encounter: 06/28/17 Time of Encounter: 10:00 - Discharge Diagnosis (1) Upper gastrointestinal hemorrhage Priority: Primary Status: Acute (2) Anemia Priority: Secondary Status: Acute Qualifiers: Qualified Code(s): D64.9 - Anemia, unspecified (3) Cholecystitis Priority: Secondary Status: Acute (4) Transaminitis Priority: Secondary Status: Acute (5) DVT prophylaxis Priority: Secondary Status: Acute (6) Anxiety Priority: Secondary Status: Acute - Discharge Medications Prescriptions: OxyCODONE/APAP 5/325 [Percocet 5/325 MG] 1 each PO Q6HR PRN #20 tablet PRN Reason: Pain Pantoprazole Sodium [Protonix] 40 mg PO DAILY #30 tablet. Home Medications: OxyCODONE/APAP 5/325 [Percocet 5/325 MG] 1 each PO Q6HR PRN #20 tablet 06/28/17 [Rx] Pantoprazole Sodium [Protonix] 40 mg PO DAILY #30 tablet. 06/28/17 [Rx] Allergies/Adverse Reactions: 3 Allergy/AdvReac Type Severity Reaction Status Date / Time No Known Allergies Allergy Verified 02/19/17 21:56 Date of admission: 06/25/17 05:15 Primary care physician: PCP NONE Consults: 06/25/17 05:20 Consult to Gastroenterology [CONS] Routine Consulting Provider: [facility] Reason for Consult: UGI bleed Call Completed: No Discharging clinician: Jb Olivier Anticipated date of discharge: 06/28/17 - Patient Status Disposition: Home, Self-Care Condition: Good Overall status at discharge: patient is progressing back to baseline - Discharge Instructions Instructions: Hiatal Hernia (DC), Anemia (GEN) Follow Up With: NONE,PCP [Primary Care Provider] - - Diet and Activity Activity: increase activity as tolerated Diet: advance to your usual diet Hospital course: Mr. Tellez is a 37 year old male who initially presented to the hospital on with a chief complaint of vomiting bright red material, nausea, vomiting, abdominal pain, and cramping. Patient states that his abdominal pain was primarily in the lower abdomen below the epigastric region. He also described having a dark colored stool. Patient had no known history of peptic ulcer disease. He claimed that he had started vomiting approximately 3:30 AM on date of presentation. Patient is currently incarcerated. He was accompanied by [facility]'s deputy upon arrival to the hospital. No history of an anticoagulant. No evidence of hemodynamic compromise. Upon presentation to the hospital, patient's heart rate was elevated at 127. The rest of his vital signs were within normal limits. Rectal examination performed in the emergency department revealed black material, which was heme positive. He was noted to be anemic with hemoglobin of 10.7. IV fluids were given. Type and screen was ordered. Patient's elevated BUN was suggestive of an upper GI bleed. Patient was started on a Protonix bolus and Protonix drip. Patient's liver function tests were abnormal. Patient has a known history of hepatitis C. Serial H&H was ordered. Patient was also placed on continuous cardiac monitoring. GI was consulted for an EGD and colonoscopy. Gallbladder and liver ultrasound was ordered due to elevated liver enzymes. Patient was seen by GI on 06/25/17. Per GI, patient's hemoglobin drops 2 points since admission. GI agreed to do an EGD. They also recommended continuing a PPI drip. EGD revealed the presence of a Isamar-Arambula tear. Patient was continued on pantoprazole drip 80 mg IV. Gallbladder ultrasound on 06/25/17 revealed following: Suspected biliary sludge without findings of cholelithiasis. Mild gallbladder wall thickening without additional secondary findings of cholecystitis. During his stay in the hospital, patient had 2 units of packed red blood cells transfused. Hemoglobin dropped to a low of 7.1 on 06/26/17. Patient's diet was gradually advanced. On date of discharge, patient is tolerating a full diet without difficulty. He denies having abdominal pain, nausea, vomiting, melena, or hematemesis. Patient's hemoglobin is rising. Abdominal pain has improved, but some pain is still present. Patient will be discharged on Percocet 5-325 Q6 for 5 days and Protonix 40mg daily for 30 days. - Time Spent with Patient Total time spent providing and/or coordinating discharge services: - Constitutional Vitals: Temp Pulse Resp BP Pulse Ox 98.6 F 79 15 101/63 97 06/28/17 07:21 06/28/17 07:21 06/28/17 07:21 06/28/17 07:21 06/28/17 07:21 General appearance: Present: cooperative, A&O X 3, pleasant, no acute distress, answers questions appropriately - Head Head exam: Present: atraumatic, normocephalic - Eye Eye exam: Present: PERRL, conjuntiva pink, sclera anicteric Pupils: Present: PERRL - Neck Neck exam general surgery: Present: supple, trachea midline. Absent: lymphadenopathy - Respiratory Respiratory exam: Present: CTAB. Absent: accessory muscle use, rales, rhonchi, wheezes - Cardiovascular Cardiovascular exam: Present: RRR, +S1, +S2. Absent: diastolic murmur, gallop, rubs, systolic murmur - GI/Abdominal GI/Abdominal exam: Present: normal bowel sounds, soft, tenderness. Absent: distended - Extremities Exam Extremities exam: Present: warm, radial pulses palpable and symmetrical. Absent : calf tenderness, cyanotic, pedal edema - Skin Skin exam: Present: dry, intact <Nate Patel - Last Filed: 06/30/17 17:17> Date of Encounter: 06/28/17 Date of admission: 06/25/17 05:15 Primary care physician: PCP NONE Consults: 06/25/17 05:20 Consult to Gastroenterology [CONS] Routine Consulting Provider: [facility] Reason for Consult: UGI bleed Call Completed: No Hospital course: Mr. Tellez is a 37 year old male - Time Spent with Patient Total time spent providing and/or coordinating discharge services: - Constitutional Vitals: Temp Pulse Resp BP Pulse Ox 98.6 F 79 15 101/63 97 06/28/17 07:21 06/28/17 07:21 06/28/17 07:21 06/28/17 07:21 06/28/17 07:21 - Attending Attestation I conducted a face to face diagnostic evaluation of this patient and my medical decision-making was reviewed with the Resident Physician, Dr. Jb Olivier. I agree with the documented findings, disposition and treatment plan as described except to the extent set forth below: Patient reports occasional abdominal pain. Denies nausea vomiting. He is awake alert oriented 3. Abdomen is soft, nontender nondistended. Hemoglobin has been stable after transfusion. He has tolerated a regular diet. He will be discharged home and states that he will turn himself into [facility] today.
[2017-06-28] MEDS ORDERED: FLUARIX QUAD 2017-18 36MOS UP/PF 0.5 ML SYRINGE IM ONE (10:29)
[2017-06-28 23:32] LABS: A1A SZ Specimen WHOLE BLOOD; Alpha-1-Antitrypsin S Allele NEGATIVE; Alpha-1-Antitrypsin Z Allele NEGATIVE
[2017-07-01 08:02] LABS: Hepatitis Be Antigen POSITIVE (Negative)
[2017-07-01 08:20] LABS: HCV Quant Interpretation DETECTED (Not Detected)
[2017-07-01 08:36] LABS: Alpha-1-Antitrypsin 146 mg/dL (90-200)
[2017-07-01 12:45] LABS: Hepatitis Be Antibody NEGATIVE (Negative)
[2017-07-01 12:58] LABS: HBV Quant Interpretation DETECTED (Not Detected); HBV Quant Log by PCR 7.8 log IU
== END 2017-06-28 12:04 | disposition home or self-care (01) | DRG 242 ==
LOC: 2ANU 20:14 → EMEROO 20:14 → 2ANU 06-25 00:18 → SUATTDRO 06-25 05:15
PROVIDERS: ADMIT Pediatrics; ATTEND Internal Medicine